=== PATIENT | female | born 1930 | race African-American/Black ===

== ENCOUNTER 2016-09-22 09:04 | Inpatient (IN) ==
[2016-09-22] MEDS ORDERED: SODIUM CHLORIDE 0.9% 500 ML IV STA (09:28)
[2016-09-22] MEDS ORDERED: PANTOPRAZOLE 40 MG VIAL IV STA (09:28)
--- NOTE | 2016-09-22 09:33 | Emergency Department Note ---
Arrival - Arrival Chief Complaint: GI Bleed/Rectal Stated Complaint: rectal bleed ED Nursing Triage Note: states got up this am to void but only had rectal bleeding Mode of Arrival: Wheelchair Limitations: No Limitations Source: Patient Time Seen by Provider: 09/22/16 09:28 - History of Present Illness HPI Narrative: This 85-year-old black female presents with 18 hours of intermittent painless rectal bleeding. The patient denies any recent abdominal pain, heartburn, belching, peptic ulcer disease, pancreatitis, diverticulitis, melena, nausea, or vomiting. The patient describes the last 4 bowel movements as being very bloody and containing both blood and mucus but no clots. She denies any prior episodes such as this. She likewise denies any chest pain or shortness of breath since onset of the symptoms. The patient has had no symptoms associated with this and in fact has felt well the last several months with a good checkup just yesterday with her primary care doctor, Dr. Vences. Currently she appears in no acute medical distress. Onset (ago): hour(s) (Patient presents 18 hours post onset of symptoms) Consistency: constant Severity: moderate Date of Last Menstrual Period: hyst Allergies/Adverse Reactions: Allergies Allergy/AdvReac Type Severity Reaction Status Date / Time No Known Allergies Allergy Unverified 09/22/16 09:12 Home Medications: Home Medications Medication Instructions Recorded Confirmed Type Aspirin [Ecotrin] 81 mg PO QOTHER DAY 09/22/16 09/22/16 History Atorvastatin [Lipitor] 40 mg PO DAILY 09/22/16 09/22/16 History Carvedilol [Coreg] 6.25 mg PO BID 09/22/16 09/22/16 History Diltiazem HCl [Diltiazem ER (24 120 mg PO BID 09/22/16 09/22/16 History hr)] Meloxicam 7.5 mg PO DAILY 09/22/16 09/22/16 History Metformin HCl 850 mg PO BID 09/22/16 09/22/16 History Potassium Chloride [Klor-Con M20] 20 meq PO DAILY 09/22/16 09/22/16 History glipiZIDE [Glipizide] 10 mg PO BID 09/22/16 09/22/16 History Review of System - Review of System 12 point system: reviewed and no additional remarkable complaints except as stated - Review of System Respiratory: Present: as per HPI Cardiovascular: Present: as per HPI Gastrointestinal: Present: as per HPI Medical,Surgical,& Family Hx - Medical History Cardio: History of: Hypertension Endocrine: History of: Diabetes Mellitus (NIDDM), Dyslipidemia - Social History Smoking Status: Never smoker Frequency of Alcohol Use: None Type of Drug Use: None Exam Physical Examination: GENERAL: Well developed, well nourished elderly black female in no acute distress. HEENT: Normocephalic. No trauma. Moist mucous membranes. EOMI. PERRLA. ENT NML NECK: Supple. No adenopathy. CARDIAC: Regular. No murmurs. Heart rate 89 CHEST: Clear to auscultation. No respiratory distress. O2 sat 90% ABDOMEN: Soft. Nontender. Active bowel sounds. EXTREMITIES: No trauma. Normal ROM. No pedal edema. SKIN: No diaphoresis. No rash. NEURO: Alert. Neuro intact. No focal deficits. Vital Signs: Vital Signs Temperature 97.9 F 09/22/16 09:07 Pulse Rate 95 H 09/22/16 10:28 Respiratory Rate 14 09/22/16 10:28 Blood Pressure 189/96 09/22/16 09:45 O2 Sat by Pulse Oximetry 98 09/22/16 10:28 Course - Reevaluation(s) Reevaluation #1: Discussed with patient the need to find a source of her bleeding thus necessitating hospitalization. - Consultations Consultation #1: Discussed with the hospitalist service who will admit for further evaluation treatment. Results - Labs CBC & BMP: 09/22/16 09:58 09/22/16 09:58 Labs: Stool Hemoccult positive. I also noted the low hematocrit and hyponatremic status with negative cardiac's. - Impressions EKG: Sinus rhythm at 78. Normal AL interval with normal QRS duration. Left ventricular hypertrophy with nonspecific ST changes. Old anterior VA versus poor R-wave progression anteriorly. No acute injury pattern noted. - Diagnostic Findings Procedure: Chest x-ray: image reviewed by me, report reviewed by me ( Cardiomegaly) Disposition Clinical Impression: Lower GI bleed Case discussed with: patient, patient's family Disposition: Still a Patient Condition: Guarded Time of Disposition: 11:08
[2016-09-22 10:13] LABS: Basophils % 0.8 % (0.0-0.8); Eosinophils # 0.1 10*3/uL (0.0-0.87); Hematocrit 34.9 VOL% (35.7-47.0); Hemoglobin 11.5 GM/DL (12.0-16.0); Immature Granulocytes % 0.3 %; Immature Granulocytes Absolute 0.01 #; Lymphocytes # 1.3 10*3/uL (1.4-4.0); Lymphocytes % 32.2 % (21.3-54.2); Mean Corpuscular Hemoglobin 31 PG (27-34); Mean Corpuscular Volume 95.1 FL (87-102); Monocytes # 0.4 10*3/uL (0.11-0.8); Monocytes % 9.3 % (1.7-12.7); Neutrophils # 2.2 10*3/uL (1.4-7.4); Neutrophils % 55.4 % (38.7-73.9); Platelet Count 203 T/CUMM (130-400); Red Blood Count 3.67 MC/CUMM (3.8-5.5); Red Cell Distribution Width 12.3 % (9.3-17.3)
--- NOTE | 2016-09-22 10:17 | XRay Report ---
XR chest 1V portable Indication: Shortness of breath. Chest one view: No comparison. Heart is minimally enlarged. Aorta is calcified and tortuous. Mediastinal contour is unremarkable. Calcified granulomata are present bilaterally, especially left hilar region. Coarsened interstitial markings of the lungs are nonspecific, but no focal infiltrate is shown. Degenerative changes of the shoulders noted. Impression: Cardiomegaly without CHF. Prior granulomatous disease. PROCEDURE INTERPRETED AT [facility] DEPARTMENT OF RADIOLOGY Final Report Signed by: Viraj Gallegos M.D.
--- NOTE | 2016-09-22 10:19 | EKG Report ---
Stationary ECG Study [facility] ER Test Date: 09/22/2016 10:17:53 AM Pat Name: WESTLEY REGALADO Department: Room: Gender: F Jordan Man: : 1930 Requested by: Paul Prescott Order Number: [id number] Reading MD: LUCHO ROONEY Intervals [place] Rate: 78 P: 35 AR: 184 QRS: -46 QRSD: 89 T: 87 QT: 399 QTc: 433 Interpretive Statements SINUS RHYTHM LEFT ANTERIOR FASCICULAR BLOCK MINIMAL VOLTAGE CRITERIA FOR LVH, CONSIDER NORMAL VARIANT ANTEROSEPTAL MYOCARDIAL INFARCTION, OF INDETERMINATE AGE Electronically Signed On 09-22-16 22:55:17 CDT by LUCHO ROONEY [id number]
[2016-09-22 10:25] LABS: PT Patient Result 10.5 SECS; Partial Thromboplastin Time 21.5 SECS (0-40)
[2016-09-22 10:37] LABS: Alanine Aminotransferase 18 U/L (13-56); Albumin 3.5 G/DL (3.4-5.0); Alkaline Phosphatase 73 U/L (45-117); Aspartate Amino Transferase 17 U/L (0-37); Blood Urea Nitrogen 18 MG/DL (7-18); Calcium 8.9 MG/DL (8.5-10.1); Glucose 154 MG/DL (74-106); Osmolality,Calculated 303.9 MOS/KG (273-304); Potassium 3.9 MMOL/L (3.5-5.1); Sodium 151 MMOL/L (136-145); Total Protein 6.3 G/DL (6.4-8.3); Troponin I Only < 0.015 NG/ML (0.00-0.045)
[2016-09-22] MEDS ORDERED: PANTOPRAZOLE 40 MG VIAL IV ONE (11:19)
--- NOTE | 2016-09-22 11:53 | Hospitalist History & Physical ---
<YusufPatrizia - Last Filed: 09/22/16 12:49> Assessment and Plan (1) Rectal bleed Status: Acute Assessment and plan: Consult GI. Monitor lab work. Continue to monitor patient status. Current Visit: Yes (2) Hypertension Status: Acute Assessment and plan: Restart patient's home meds. Current Visit: Yes (3) Dyslipidemia Status: Chronic Assessment and plan: Lipid panel in am. Current Visit: Yes History of Present Illness Chief complaint: rectal bleeding History of present illness: Ms. Mario is a 85-year-old black female patient who presents to the ER today with complaints of painless, intermittent rectal bleeding. Patient states that the bleeding started yesterday afternoon around 4 PM. Pt. She states that she felt like she had to urinate but once she got to the bathroom she realized that she was bleeding. Patient describes the blood as painlesss and dark red in color that it was "a lot" and estimated that it was almost "a quart." Pt. states that there were no clots present. Patient denies ever having an episode similar to this before. Pt. reports the rectal bleeding occuring 3 times yesterday and once this am in at home and once in ED (totalling 5 times). Pt denies any chest pain or shortness of breath but admits to being lightheaded. Patient also denies any abdominal pain, fever, chills, nausea, vomiting, or diarrhea. Pt. denies any heartburn, ulcers or any stomach issues in the past. Pt. denies any trauma to rectal area or any constipation or straining. Patient has a past medical history of hypertension, diabetes, and elevated cholesterol. Past surgical history includes right hip and left knee replacements as well as hysterectomy. Pt states that she is on a blood thinner but is unable to state the name and reason for taking. Pt. has bag of medication but does not have blood thinner with her. ([facility] was called and had no record of blood thinner on file). No apparent distress noted. Family at bedside. The pt will be admitted to the hospitalist service for evaluation and treatment. Home Medications Medication Instructions Recorded Confirmed Type Aspirin [Ecotrin] 81 mg PO QOTHER DAY 09/22/16 09/22/16 History Atorvastatin [Lipitor] 40 mg PO DAILY 09/22/16 09/22/16 History Carvedilol [Coreg] 6.25 mg PO BID 09/22/16 09/22/16 History Diltiazem HCl [Diltiazem ER (24 120 mg PO BID 09/22/16 09/22/16 History hr)] Meloxicam 7.5 mg PO DAILY 09/22/16 09/22/16 History Metformin HCl 850 mg PO BID 09/22/16 09/22/16 History Potassium Chloride [Klor-Con M20] 20 meq PO DAILY 09/22/16 09/22/16 History glipiZIDE [Glipizide] 10 mg PO BID 09/22/16 09/22/16 History Allergies Allergy/AdvReac Type Severity Reaction Status Date / Time No Known Allergies Allergy Unverified 09/22/16 09:12 Medical,Surgical,& Family Hx - Medical History Cardio: History of: Hypertension Endocrine: History of: Diabetes Mellitus (NIDDM), Dyslipidemia - Surgical History Reproductive Surgeries: Surgical HX of;: Hysterectomy Orthopedic Surgeries: Surgical HX of;: Total Hip Replacement (right), Total Knee Replacement (left) - Social History Smoking Status: Never smoker Frequency of Alcohol Use: None Type of Drug Use: None Marital Status: Lives With:: Alone - Constitutional Constitutional: Absent: chills, fever(s), stops breathing during sleep - EENT Eyes: Absent: loss of vision Nose, mouth and throat: Absent: dysphagia, headache(s) - Cardiovascular Cardiovascular: Present: lightheadedness. Absent: chest pain at rest, dyspnea - Respiratory Respiratory: Absent: cough - Gastrointestinal Gastrointestinal: Present: hematochezia. Absent: abdominal pain, cramping, nausea, vomiting - Genitourinary Genitourinary: Absent: dysuria - Neurological Neurological: Absent: confusion, frequent falls Exam - Constitutional Vitals: Period Temp Pulse Resp BP Sys/White Pulse Ox Last 24 Hr 97.9 F 77-95 14-21 156-189/96-129 96-98 General appearance: no acute distress - Head Head exam: Present: normal inspection, normocephalic - Eye Eye exam: Present: EOMI Pupils: Present: AILYN - Respiratory Respiratory exam: Present: clear to auscultation bilaterally. Absent: wheezes - GI/Abdominal GI/Abdominal exam: Present: normal bowel sounds, soft. Absent: tenderness - Extremities Exam Extremities exam: Present: normal capillary refill, full ROM. Absent: edema - Neurological Exam Neurological exam: Present: alert, oriented X3 - Psychiatric Psychiatric exam: Present: normal affect, normal mood - Skin Skin exam: Present: normal color, warm, dry Results - Labs CBC & BMP: 09/22/16 09:58 09/22/16 09:58 Lab Results: I have reviewed the past 24 hour labs <Ester Hart - Last Filed: 09/22/16 14:27> History of Present Illness History of present illness: Ms. Mario is a 85 year old female with a history of DM, HTN who presents with a history of rectal bleed. patient seen, examined by me.I agree with the above management. -IVF -type and screen blood serial cbc UA A1c level Hold oral hypoglycemics due to NPo for possible scopes PPI SSC insulin Hold ASA resume other home meds. GI consult Exam - Constitutional Vitals: Period Temp Pulse Resp BP Sys/White Pulse Ox Last 24 Hr 77-84 16-21 160-197/85-104 96-99 Results - Labs CBC & BMP: 09/22/16 09:58 09/22/16 09:58
[2016-09-22] MEDS ORDERED: BISACODYL 5 MG TABLET PO PRN (15:32)
[2016-09-22] MEDS ORDERED: DEXTROSE 50% 25 GM/50 ML VIAL IV PRN (15:32)
[2016-09-22] MEDS ORDERED: GLUCAGON 1 MG VIAL IM PRN (15:32)
[2016-09-22] MEDS ORDERED: DOCUSATE SODIUM 100 MG CAPSULE PO PRN (15:32)
[2016-09-22] MEDS: SODIUM CHLORIDE 0.45% 1,000 ML IV SCH (16:00)
[2016-09-22] MEDS: INSULIN LISPRO 100 UNIT/ML SUBCUT SCH ×2 (17:32→22:42)
[2016-09-22 21:04] LABS: Apearance,Urine CLEAR (Clear); Bacteria,Urine Occasional /HPF (Few); Bilirubin,Urine Negative (Negative); Blood, Urine Large mg/dL (Negative); Glucose,Urine (UA) 50 mg/dL (Negative); Hyaline Casts,Urine 1 /LPF (0-3); Ketones,Urine Negative (Negative); Nitrite,Urine Negative (Negative); Protein,Urine Negative; RBC,Urine 1 /HPF (0-4); Squamous Epithelial Cell,Urine Occasional /HPF (0-10); Urine Color Yellow (Yellow); Urine Specific Gravity 1.006 (1.001-1.035); Urine Urobilinogen < 2.0 EU/DL (0.2-1.0); WBC,Urine 4 /HPF (0-6)
[2016-09-22] MEDS: DILTIAZEM CD 120 MG CAPSULE PO SCH (22:41)
[2016-09-22] MEDS: CARVEDILOL 6.25 MG TABLET PO SCH (22:42)
[2016-09-23] MEDS: SODIUM CHLORIDE 0.45% 1,000 ML IV SCH (01:48)
[2016-09-23 06:05] LABS: PT Patient Result 10.8 SECS
[2016-09-23 06:18] LABS: Basophils % 0.6 % (0.0-0.8); Eosinophils # 0.1 10*3/uL (0.0-0.87); Eosinophils % 2.2 % (0.00-10.9); Hematocrit 25.8 VOL% (35.7-47.0); Immature Granulocytes % 0.3 %; Immature Granulocytes Absolute 0.01 #; Lymphocytes # 1.5 10*3/uL (1.4-4.0); Lymphocytes % 42.4 % (21.3-54.2); Mean Corpuscular HGB Conc 32.9 GM/DL (32-36); Mean Corpuscular Hemoglobin 32 PG (27-34); Mean Corpuscular Volume 95.6 FL (87-102); Mean Platelet Volume 11.4 FL (9.6-12.0); Monocytes # 0.4 10*3/uL (0.11-0.8); Monocytes % 11.4 % (1.7-12.7); Neutrophils # 1.6 10*3/uL (1.4-7.4); Neutrophils % 43.1 % (38.7-73.9); Platelet Count 172 T/CUMM (130-400); Red Cell Distribution Width 12.5 % (9.3-17.3); White Blood Count 3.6 T/CUMM (4-12)
[2016-09-23 06:20] LABS: Hemoglobin 8.5 GM/DL (12.0-16.0)
[2016-09-23 06:32] LABS: Albumin 2.8 G/DL (3.4-5.0); Bilirubin,Total 0.7 MG/DL (0.2-1.0); Osmolality,Calculated 301.7 MOS/KG (273-304); Potassium 3.3 MMOL/L (3.5-5.1); Total Protein 4.8 G/DL (6.4-8.3)
[2016-09-23 06:39] LABS: Risk Ratio 2.72; VLDL CHOLESTEROL 19.6 MG/DL
[2016-09-23 06:41] LABS: Free T4 (Free Thyroxine) 1.22 NG/DL (0.76-1.46); Thyroid Stimulating Hormone 1.83 uIU/ml (0.358-3.74)
--- NOTE | 2016-09-23 07:25 | Gastrointestinal Consult Note ---
Assessment and Plan (1) Lower GI bleeding Status: Acute Assessment and plan: This patient has dizziness in approximately 5-6 episodes of bright red blood/ maroon stool per rectum starting yesterday at 4 PM. Seems characteristic of a diverticular bleed. The patient states that over 10 years ago she did have a colonoscopy done by Dr. Hoffman but does not recall exactly what the results were. It is felt this also might be a colon cancer versus AVM versus ischemic colitis versus infectious colitis as other possible etiologies of the bleeding. This was painless making me believe that there was a diverticular bleed in particular. She has lost a significant amount of blood and does need transfusion today. Current Visit: Yes (2) Acute blood loss anemia Status: Acute Assessment and plan: We will continue to follow patient's hematocrit over time however we will transfuse 2 units packed red blood cells given the patient's ongoing dizziness whenever she tries to sit up in bed, and given her advanced age. We need a cushion in case she bleeds again. Currently her hematocrit is down to the 25.8 % range, parameters written. We will plan on prepping the patient this afternoon and doing colonoscopy tomorrow morning around 7-9 AM in the morning. Risks and benefits were reviewed with the patient and include but are not limited to: Bleeding, infection, perforation, cardiac and pulmonary compromise. Further recommendations post colonoscopy. I have stopped the patient's aspirin and Mobic, if we do not find anything on lower endoscopy evaluation and see further bleeding coming from the TI we will certainly order a upper endoscopy to follow Wednesday otherwise the patient should be able to be discharged potentially. Current Visit: Yes History of Present Illness Chief complaint: Hematocrit dropped to 34.9-->25.8%, bright red blood per rectum History of present illness: Ms. Mario is a 85 year old female Patient states that the bleeding started yesterday afternoon around 4 PM. Pt. painless rectal bleeding after attempting to urinate--unclear quantity. Total 5 episodes described including 1 in the emergency room which was witnessed and appeared to be dark red. Pt denies any chest pain or shortness of breath but admits to being lightheaded. No constipation per patient. Patient's hematocrit is subsequently dropped from 34.9-->25.8. Medication list includes meloxicam and aspirin as potential bleeding sources. Given the bright red blood/maroon stools seen by the patient we will start with the colon first. On physical exam this blood in the rectum is noted to be brighter red than previously described and grossly guaiac positive. She states that she had previously had a colonoscopy done by Dr. Hoffman over 10 years ago--this may be another Jose Roberto as there is no entry in the computer for this. This patient unfortunately lost her of 70 years last December and is still mourning his loss. Nothing like this is ever happened previously, and no point was the stool noted to be black. Due to her ongoing dizziness we will be transfusing the patient with 2 units of packed red blood cells each followed by 20 mg of Lasix. Home Medications Medication Instructions Recorded Confirmed Type Aspirin [Ecotrin] 81 mg PO QOTHER DAY 09/22/16 09/22/16 History Atorvastatin [Lipitor] 40 mg PO DAILY 09/22/16 09/22/16 History Carvedilol [Coreg] 6.25 mg PO BID 09/22/16 09/22/16 History Diltiazem HCl [Diltiazem ER (24 120 mg PO BID 09/22/16 09/22/16 History hr)] Meloxicam 7.5 mg PO DAILY 09/22/16 09/22/16 History Metformin HCl 850 mg PO BID 09/22/16 09/22/16 History Potassium Chloride [Klor-Con M20] 20 meq PO DAILY 09/22/16 09/22/16 History glipiZIDE [Glipizide] 10 mg PO BID 09/22/16 09/22/16 History Allergies Allergy/AdvReac Type Severity Reaction Status Date / Time No Known Allergies Allergy Unverified 09/22/16 09:12 Medical,Surgical,& Family Hx - Medical History Cardio: History of: Hypertension Psychological: No history of: Anxiety Disorders, ADHD, Behavior Problems, Bipolar Disorder, Depression, Previous Suicide Attempt, Psychiatric/Substance Abuse Tx, Schizophrenia, Violent Behavior, Psychiatric Problems Endocrine: History of: Diabetes Mellitus (NIDDM), Dyslipidemia Musculoskeletal: History of: Musculoskeletal Problems - Surgical History Thoracic Surgeries: Patient denies;: Organ Transplant Neurologic Surgeries: Patient denies: Neurologic Surgery Abdominal Surgeries: Surgical HX of: Abdominal Surgery Reproductive Surgeries: Surgical HX of;: Hysterectomy Orthopedic Surgeries: Surgical HX of;: Total Hip Replacement (right), Total Knee Replacement (left) - Family History Family History: Reports;: Family Cancer (mother), Family Stroke (2 brothers cva) , Additional Family History (father emphyasema) - Social History Smoking Status: Never smoker Frequency of Alcohol Use: None Type of Drug Use: None Review of systems: Constitutional: Denies fever, chills, nausea, and vomiting Eyes: Denies dry eyes, and scleral icterus HENT: Denies headaches Cardiovascular: Denies acute chest pain and claudication Respiratory: Denies shortness of breath, wheezing, and difficulty breathing, denies cough Gastrointestinal: As noted in the HPI Genitourinary: Denies dysuria and hematuria Neurologic: Denies vision loss, and loss of sensation Musculoskeletal: She does admit to joint swelling, joint stiffness, and muscular weakness, and does have some dizziness Psychiatric: Denies depression and tj symptoms Heme-Lymph: Denies easy bruising, lymph node enlargement or tenderness, night sweats, excessive bleeding Allergies-immunologic: Denies pruritus and rhinorrhea Exam - Constitutional Vitals: Period Temp Pulse Resp BP Sys/White Pulse Ox Last 24 Hr 97.1 F-97.9 F 69-106 13-23 120-197/66-122 95-100 Exam: Constitutional: Well-developed, well-nourished, alert obese black female, in no acute distress Head and face: Head: Normocephalic atraumatic Eyes: Conjunctiva without injection, no gross scleral icterus, pupils equal and round bilaterally Ears: Intact to conversation in both ears Nose: External appearance is normal, nares patent Mouth: Oral mucous membranes moist without erythema dentition noted to be without erosion Neck: Normal appearance, no masses or tenderness, trachea midline Thyroid: Gland midline and appropriate size for age Respiratory: Normal respiratory effort, clear to auscultation without wheezes, rhonchi or rales Cardiovascular: Regular rate and rhythm, normal S1, S2, the exam is without rubs, murmurs or gallops. Gastrointestinal: Nontender to palpation, normal active bowel sounds, tone normal without rigidity or guarding, no masses present, no hepatomegaly, no spleen tip felt. Rectal exam shows mild anal stricturing, patient does have small internal hemorrhoids stool is red and grossly guaiac positive. Lymphatic: Neck without adenopathy, axilla without lymphadenopathy present Musculoskeletal: Right and left lower extremities without evidence of edema Skin and subcutaneous tissue: No rashes or ulcerations noted, normal skin turgor, digits and nails without clubbing/cyanosis/deformities. Neurologic: The patient is grossly oriented to person place and time, cranial nerves show tongue movements are normal with normal tongue extrusion midline, light touch sensation is intact. Psychiatric: No hallucinations or delusions are present, does not appear depressed Results - Labs CBC & BMP: 09/23/16 05:11 09/23/16 05:11 Quality Measures - VTE Contraindication to Pharmacological VTE Prophylaxis: Active Bleeding
[2016-09-23] MEDS ORDERED: SODIUM CHLORIDE 0.9% 250 ML IV PRN (07:30)
[2016-09-23] MEDS ORDERED: FUROSEMIDE 20 MG/2 ML VIAL IV PRN (07:30)
--- NOTE | 2016-09-23 08:28 | Physician Query Form ---
CLICK EDIT DOCUMENT TO SELECT QUERY ANSWER --> OK --> SIGN Carmen Guerrero RN, CCDS Certified Clinical Mica Paster W) [phone] (f) [phone] [email or web address] PROVIDERS: Make your selection(s) from the choices in EACH section by typing an "x" and enter comments in the comment section. Please use your independent medical judgment in providing your response. This request does not imply that any particular answer is desired or expected. CLINICAL INDICATORS: (Providers should not edit this section) The medical record indicates that the patient was admitted with lower GI bleeding, HH of 11.5/34.9 that has dropped to 8.5/25.8 and the patient has a order for blood. Based on the above, could you clarify which of the following conditions you are evaluating, treating, and/or monitoring? ( ) Blood loss anemia ( ) acute ( ) chronic (XX) acute on chronic ( ) Acute blood loss anemia on baseline chronic anemia ( ) Acute blood loss anemia as a complication of a procedure ( ) Iron deficiency anemia not associated with blood loss ( ) Dilutional anemia due to IV fluids ( ) Anemia due to chemotherapy ( ) Anemia due to neoplastic disease ( ) Anemia due to chronic kidney disease ( ) Pernicious anemia ( ) Aplastic anemia ( ) Hemolytic anemia ( ) immune ( ) non-immune - please specify cause: ( ) Anemia due to other condition, please specify: ( ) Clinically unable to determine COMMENTS: Use of terms such as suspected, likely, or probable (associated with a specific diagnosis that is being evaluated, monitored, or treated as if it exists) are acceptable and can be restated in the discharge summary if not ruled out. MTDD
[2016-09-23] MEDS: INSULIN LISPRO 100 UNIT/ML SUBCUT SCH ×4 (08:49→21:39)
[2016-09-23] MEDS: ATORVASTATIN 40 MG TABLET PO SCH (08:50)
[2016-09-23] MEDS: BISACODYL 5 MG TABLET PO SCH ×3 (08:50→21:38)
[2016-09-23] MEDS: PANTOPRAZOLE 40 MG VIAL IV SCH (08:50)
[2016-09-23] MEDS: CARVEDILOL 6.25 MG TABLET PO SCH ×2 (08:51→21:39)
[2016-09-23] MEDS: DILTIAZEM CD 120 MG CAPSULE PO SCH ×2 (08:51→21:40)
[2016-09-23] MEDS ORDERED: MELOXICAM 7.5 MG TABLET PO SCH (09:00)
[2016-09-23] MEDS: SODIUM CHLORIDE 23.4% CONC INJ 38.5 MEQ in STERILE WATER INJ 1,000 ML IV SCH (12:53)
[2016-09-23] MEDS: POTASSIUM CHLORIDE 20 MEQ TABLET PO PRN ×3 (12:59→17:19)
[2016-09-23] MEDS ORDERED: DEXTROSE 5% 500 ML IV SCH (15:00)
[2016-09-23] MEDS ORDERED: POLYETHYLENE GLYCOL POWDER 255 GM BOTTLE PO ONE (16:00)
--- NOTE | 2016-09-23 16:29 | Hospitalist Progress Note ---
Assessment and Plan (1) Rectal bleed Status: Acute Assessment and plan: her last bloody stool was around 9am today. Continue with transfusion. For a colonoscopy in am. Current Visit: Yes (2) Hypertension Status: Acute Assessment and plan: uncontrolled. Will add lisinopril 5mg daily, follow response. Current Visit: Yes (3) Dyslipidemia Status: Chronic Assessment and plan: continue with statins. Lipids noted. Current Visit: Yes (4) Diabetes Status: Acute Assessment and plan: continue SSC and accuchecks, [id number] Current Visit: Yes (5) Acute blood loss anemia Status: Acute Assessment and plan: due to a GI bleed. Follow colonoscopy in am. continue with PPIs, hold ASA, she is currently receiving two units of packed cells. CBC in am Current Visit: Yes Hospitalist: Subjective Interval history: Patient seen. her last bloody stool was around 9am today.She is currently being transfused with packed cells.She will be going for a colonoscopy in am. Exam - Constitutional Vitals: Period Temp Pulse Resp BP Sys/White Pulse Ox Last 24 Hr 97.1 F-98.2 F 55-106 17-20 119-195/66-122 95-98 General appearance: no acute distress - Head Head exam: Present: normal inspection - Respiratory Respiratory exam: Present: clear to auscultation bilaterally - Cardiovascular Cardiovascular exam: Present: regular rate and rhythm - GI/Abdominal GI/Abdominal exam: Present: normal bowel sounds - Extremities Exam Extremities exam: Present: normal inspection - Neurological Exam Neurological exam: Present: alert Results - Labs CBC & BMP: 09/23/16 05:11 09/23/16 05:11 Lab Results: I have reviewed the past 24 hour labs Quality Measures - VTE Contraindication to Pharmacological VTE Prophylaxis: Active Bleeding
[2016-09-23] MEDS: LISINOPRIL 5 MG TABLET PO SCH (17:22)
[2016-09-23] MEDS ORDERED: MAGNESIUM CITRATE 300 ML BOTTLE PO ONE (21:00)
[2016-09-24] MEDS: BISACODYL 5 MG TABLET PO SCH (00:52)
[2016-09-24] MEDS: SODIUM CHLORIDE 23.4% CONC INJ 38.5 MEQ in STERILE WATER INJ 1,000 ML IV SCH ×2 (00:53→16:23)
--- NOTE | 2016-09-24 06:33 | Gastrointestinal Progress Note ---
Assessment and Plan (1) Lower GI bleeding Status: Acute Assessment and plan: This patient has dizziness in approximately 5-6 episodes of bright red blood/ maroon stool per rectum starting yesterday at 4 PM. Seems characteristic of a diverticular bleed. The patient states that over 10 years ago she did have a colonoscopy done by Dr. Hoffman but does not recall exactly what the results were. It is felt this also might be a colon cancer versus AVM versus ischemic colitis versus infectious colitis as other possible etiologies of the bleeding. This was painless making me believe that there was a diverticular bleed in particular. She has lost a significant amount of blood and does need transfusion today. 09/24/16--The patient did not have any further leading with the GI prep. Findings of colonoscopy were as follows: Moderately severe left-sided diverticulosis, thought to be the source of this patient's bleeding, moderate size internal hemorrhoids noted on retroflex, single rectal polyp noted as well removed by hot biopsy. She is not bleeding at this point and there is no blood refluxing from the terminal ileum. Her hematocrit is increased to 36% and she can be discharged from the hospital at this time. We need to advise the patient that her likelihood of having a rebleed in the next 1 year is about 25% . The bleeding was thought to be coming from diverticuli noted in the sigmoid colon. Current Visit: Yes (2) Acute blood loss anemia Status: Acute Assessment and plan: We will continue to follow patient's hematocrit over time however we will transfuse 2 units packed red blood cells given the patient's ongoing dizziness whenever she tries to sit up in bed, and given her advanced age. We need a cushion in case she bleeds again. Currently her hematocrit is down to the 25.8 % range, parameters written. We will plan on prepping the patient this afternoon and doing colonoscopy tomorrow morning around 7-9 AM in the morning. Risks and benefits were reviewed with the patient and include but are not limited to: Bleeding, infection, perforation, cardiac and pulmonary compromise. Further recommendations post colonoscopy. I have stopped the patient's aspirin and Mobic, if we do not find anything on lower endoscopy evaluation and see further bleeding coming from the TI we will certainly order a upper endoscopy to follow Wednesday otherwise the patient should be able to be discharged potentially. 09/24/16--patient's hematocrit is stable now at 36% she has had no further bleeding with the prep over the evening time and can be discharged home at this time in my opinion. I will contact the patient when the polyp results come back from her rectum. She has a 25% chance of rebleed in the next 1 year. If rebleeding occurs acutely she should be taken to tagged red blood cell scan to define the exact source of the bleeding site. Avoid NSAIDs for the next 2 weeks. Patient is able to eat solid food at this time. Current Visit: Yes Gastroenterology - PN: Subj Interval history: No further rectal bleeding, stools are clean and clear. No abdominal pain this morning. Preliminary from urine cultures show gram-negative rods. The patient did receive 2 units packed red blood cells. No hematocrit yet available from this morning. No further bleeding last night with the prep. Exam (Progress Note) - Constitutional Vitals: Period Temp Pulse Resp BP Sys/White Pulse Ox Last 24 Hr 97.3 F-98.2 F 55-83 16-18 119-195/62-99 92-98 General appearance: no acute distress - Head Head exam: Present: normocephalic - Eye Eye exam: Present: EOMI Pupils: Present: AILYN - Respiratory Respiratory exam: Present: clear to auscultation bilaterally. Absent: rhonchi, stridor, wheezes - Cardiovascular Cardiovascular exam: Present: regular rate and rhythm - GI/Abdominal GI/Abdominal exam: Present: normal bowel sounds, distended, soft. Absent: ascites, guarding, tenderness, rebound - Extremities Exam Extremities exam: Present: normal inspection - Back Exam Back exam: Present: normal inspection - Neurological Exam Neurological exam: Present: alert, oriented X3 - Psychiatric Psychiatric exam: Present: normal affect, normal mood - Skin Skin exam: Present: warm Results - Labs CBC & BMP: 09/24/16 06:46 09/24/16 06:46
[2016-09-24 07:02] LABS: Basophils % 0.7 % (0.0-0.8); Mean Corpuscular HGB Conc 33.8 GM/DL (32-36)
[2016-09-24 07:12] LABS: PT Patient Result 10.5 SECS
[2016-09-24 07:14] LABS: Eosinophils # 0.1 10*3/uL (0.0-0.87); Eosinophils % 2.5 % (0.00-10.9); Hematocrit 36.7 VOL% (35.7-47.0); Immature Granulocytes % 0.4 %; Immature Granulocytes Absolute 0.02 #; Lymphocytes # 1.6 10*3/uL (1.4-4.0); Lymphocytes % 29.1 % (21.3-54.2); Mean Corpuscular Hemoglobin 31 PG (27-34); Mean Corpuscular Volume 92.4 FL (87-102); Mean Platelet Volume 11.1 FL (9.6-12.0); Monocytes # 0.4 10*3/uL (0.11-0.8); Monocytes % 7.8 % (1.7-12.7); Neutrophils # 3.3 10*3/uL (1.4-7.4); Neutrophils % 59.5 % (38.7-73.9); Platelet Count 202 T/CUMM (130-400); Red Cell Distribution Width 12.9 % (9.3-17.3)
[2016-09-24 07:19] LABS: Hemoglobin 12.4 GM/DL (12.0-16.0); Red Blood Count 3.97 MC/CUMM (3.8-5.5); White Blood Count 5.6 T/CUMM (4-12)
[2016-09-24 07:35] LABS: Osmolality,Calculated 296.1 MOS/KG (273-304); Potassium 3.4 MMOL/L (3.5-5.1)
[2016-09-24] MEDS ORDERED: LIDOCAINE 2% 5 ML VIAL ONE (08:51)
[2016-09-24] MEDS ORDERED: PROPOFOL 200 MG/20 ML VIAL IV ONE (08:51)
--- NOTE | 2016-09-24 09:17 | Operative Note ---
Date of procedure: 09/24/16 Pre-op diagnosis: Rectal bleeding, hematocrit to 25% now up to 36 post transfusion Post-op diagnosis: other (Moderately severe left-sided diverticulosis, thought to be the source of this patient's bleeding, moderate size internal hemorrhoids noted on retroflex, single rectal polyp noted as well removed by hot biopsy) Procedure: PROCEDURE: Colonoscopy with hot biopsy polypectomy REFERRING PHYSICIAN: Ester Hart MD INDICATIONS: This is a patient who has bright red blood per rectum, likely diverticular bleed with decrease in hematocrit to 25% now up to 36% posttransfusion. The prior H&P was reviewed and interrim changes are as noted: No change from GI consultation yesterday ENDOSCOPIST: Andrew Anthony MD ENDOSCOPE: [employer] Video 100 System colonoscope COLON PREPARATION: 238 gm of PEG containing laxative and 1.9 liters of gatoraid/sports drink and dulcolax 15 mg q8 hours x 3 ASA CLASS: 3 EXAM: CV: regular rate and rhythm Respiratory: Clear without wheezes Abdominal: active bowel sounds Rectal: Good tone, no fissures or fistulas MEDICATION: Per nursing anesthesia protocol, see their notes PROCEDURE: After discussion of the potential risks and benefits of colonoscopy, the informed consent was obtained, from patient or health care surrogate. The patient was then placed in the left lateral decubitus position where sedation was achieved as noted above. Rectal examination was followed by insertion of the colonoscope. The colonoscope was passed under direct visualization to the cecum. Advancement was facilitated by insertion/withdrawl techniques, abdominal pressure and patient positioning. Once the cecal pole was reached, slow withdrawal was performed with the findings as noted below. The patient tolerated the procedure well and without compliExcellentcation. QUALITY OF PREP: Excellent WITHDRAWL TIME: 7 minutes 33 seconds BIOPSIES: Rectal hyperplastic-appearing polyp PHOTOGRAPHS: Obtained FINDINGS: The musoca appeared normal in the following regions: sigmoid colon, descending colon, splenic flexure, transverse colon, hepatic flexure, ascending colon and cecum. Position within the cecum was confirmed by ileocecal valve, appendiceal oriface, and the convergence of folds (crows foot). No colitis, polyp, mass or AVM was noted throughout the colon. Moderate to severe diverticulosis on the left side of the colon particularly in the sigmoid noted, this was thought to be the area of bleeding. There was no josué blood seen through the colon. Intubation of the TI was achieved x 2 cm with normal appearence--no blood refluxing from this area. IMPRESSION: Moderately severe left-sided diverticulosis, thought to be the source of this patient's bleeding, moderate size internal hemorrhoids noted on retroflex, single rectal polyp noted as well removed by hot biopsy RECOMMENDATIONS: No further rectal bleeding, this patient can be discharged today, since her hematocrit is back up to 36% post transfusion. This was thought to be a diverticular bleed and has stopped at this point. High fiber diet Repeat colonosocopy will be in 5-10 years depending on pathology of the polyp removed, we will contact patient when this information becomes available. Citrucel 1 tablespoon in 12 oz juice BID: 1 bottle: :11 Follow up by phone for biopsy results in 1-2 weeks by phone Andrew Anthony MD COPY TO: Ester Hart MD Anesthesia: MAC Surgeon / Physician: Andrew Anthony Estimated blood loss: minimal Specimens: other (Rectal polyp) Condition: stable Disposition: post procedure unit ([facility] Suite) Results - Labs CBC & BMP: 09/24/16 06:46 09/24/16 06:46 Discharge Plan - Discharge Medications No Action Meloxicam 7.5 mg PO DAILY Diltiazem HCl [Diltiazem ER (24 hr)] 120 mg PO BID Carvedilol [Coreg] 6.25 mg PO BID glipiZIDE [Glipizide] 10 mg PO BID Metformin HCl 850 mg PO BID Atorvastatin [Lipitor] 40 mg PO DAILY Potassium Chloride [Klor-Con M20] 20 meq PO DAILY Aspirin [Ecotrin] 81 mg PO QOTHER DAY - Follow Up or Referral - Forms/Instructions
[2016-09-24] MEDS: INSULIN LISPRO 100 UNIT/ML SUBCUT SCH ×4 (09:35→21:31)
[2016-09-24] MEDS: DILTIAZEM CD 120 MG CAPSULE PO SCH ×3 (09:35→21:31)
[2016-09-24] MEDS: LISINOPRIL 5 MG TABLET PO SCH ×2 (09:36→12:49)
[2016-09-24] MEDS: CARVEDILOL 6.25 MG TABLET PO SCH ×3 (09:36→21:31)
[2016-09-24] MEDS: PANTOPRAZOLE 40 MG VIAL IV SCH (09:36)
[2016-09-24] MEDS: ATORVASTATIN 40 MG TABLET PO SCH ×2 (09:36→12:49)
--- NOTE | 2016-09-24 09:57 | Anesthesia ---
Anesthesia Post OP - Post Ansesthetic Evaluation Patient seen in post op: Yes Resp: within normal limits CV: within normal limits Mental: within normal limits Temp: within normal limits Pelk-Dg-Kaszomnts: within normal limits Nausea and Vomiting: within normal limits Pain: within normal limits
[2016-09-24] MEDS: POTASSIUM CHLORIDE 20 MEQ TABLET PO PRN ×2 (12:52→16:22)
--- NOTE | 2016-09-24 15:15 | Hospitalist Progress Note ---
Assessment and Plan (1) Rectal bleed Status: Acute Assessment and plan: s/p transfusion with 2units of packed cells s/p colonoscopy today which showed moderately severe left-sided diverticulosis, thought to be the source of this patient's bleeding, moderate size internal hemorrhoids noted on retroflex, single rectal polyp noted as well removed by hot biopsy plan observe till am and dc if no complications Current Visit: Yes (2) Hypertension Status: Acute Assessment and plan: uncontrolled. increase lisinopril to 10mg daily, follow response. Current Visit: Yes (3) Dyslipidemia Status: Chronic Assessment and plan: continue with statins. Lipids noted. Current Visit: Yes (4) Diabetes Status: Acute Assessment and plan: continue SSC and accuchecks, [id number] Current Visit: Yes (5) Acute blood loss anemia Status: Acute Assessment and plan: due to a GI bleed. S/p transfusion. See above for treatment Current Visit: Yes Hospitalist: Subjective Interval history: Patient seen. She had a colonoscopy which showed Moderately severe left-sided diverticulosis, thought to be the source of this patient's bleeding, moderate size internal hemorrhoids noted on retroflex, single rectal polyp noted as well removed by hot biopsy. No episode of GI bleed. Exam - Constitutional Vitals: Period Temp Pulse Resp BP Sys/White Pulse Ox Last 24 Hr 96.0 F-98.1 F 58-79 12-18 126-205/62-097 92-99 General appearance: no acute distress - Head Head exam: Present: normal inspection - Respiratory Respiratory exam: Present: clear to auscultation bilaterally - Cardiovascular Cardiovascular exam: Present: regular rate and rhythm - GI/Abdominal GI/Abdominal exam: Present: normal bowel sounds - Extremities Exam Extremities exam: Present: normal inspection - Back Exam Back exam: Present: normal inspection Results - Labs CBC & BMP: 09/24/16 06:46 09/24/16 06:46 Lab Results: I have reviewed the past 24 hour labs Quality Measures - VTE Contraindication to Pharmacological VTE Prophylaxis: Active Bleeding
[2016-09-24] MEDS ORDERED: LISINOPRIL 10 MG TABLET PO SCH (15:17)
[2016-09-25] MEDS: SODIUM CHLORIDE 23.4% CONC INJ 38.5 MEQ in STERILE WATER INJ 1,000 ML IV SCH (05:24)
[2016-09-25 05:27] LABS: PT Patient Result 10.6 SECS
[2016-09-25 07:47] VITALS: BP 148/72
--- NOTE | 2016-09-25 07:58 | Discharge Summary ---
Hospital Course - Hospital Course Hospital Course: Ms. Mario is a 85 yr old black female with a hx of htn, dm, and hyperlipidemia that presented to the ED on 09/23 with complaints on rectal bleeding x 1 day. The pt. had 4 episodes of dark maroon blood per rectum before coming to the ED for evaluation. She was admitted to the hospitalist service. The patient's h&h decreased from 11.5/34.9 to 8.5/25.8 and received 2 units of PRBCs for a low h& h. GI was consulted to evaluate her and she had a colonoscopy on 09/24. Results revealed 'moderately severe left-sided diverticulosis, thought to be the source of this patient's bleeding, moderate size internal hemorrhoids noted on retroflex, single rectal polyp noted as well removed by hot biopsy'. She will follow up by phone for biopsy results in 1-2 weeks by phone per GI. Pt is stable since colonoscopy. Labs wnl (h&h 12.4/36.7) and vs stable. Pt is to be discharged home today. Diagnosis - Discharge Diagnosis (1) Rectal bleed Status: Acute (2) Hypertension Status: Acute (3) Dyslipidemia Status: Chronic Discharge Plan - Discharge Medications No Action Meloxicam 7.5 mg PO DAILY Diltiazem HCl [Diltiazem ER (24 hr)] 120 mg PO BID Carvedilol [Coreg] 6.25 mg PO BID glipiZIDE [Glipizide] 10 mg PO BID Metformin HCl 850 mg PO BID Atorvastatin [Lipitor] 40 mg PO DAILY Potassium Chloride [Klor-Con M20] 20 meq PO DAILY Aspirin [Ecotrin] 81 mg PO QOTHER DAY - Follow Up or Referral - Forms/Instructions Exam - Constitutional Vitals: Period Temp Pulse Resp BP Sys/White Pulse Ox Last 24 Hr 97.4 F-99.4 F 54-82 12-18 113-205/57-097 92-100 Discharge Results Labs on day of discharge: Labs from last 24 hours 09/25/16 09/24/16 09/24/16 05:08 20:12 15:45 INR 1.0 PT Patient/Control Mix 10.6 POC Glucose 228 H 129 H 09/24/16 12:43 INR PT Patient/Control Mix POC Glucose 229 H DS: Provider Date of admission: 09/22/16 11:06 Primary care physician: . No PCP Attending physician on admission: Ester Hart MD Consults: 09/22/16 15:32 Consult to Physician [CONS] Routine Comment: Dr. Anthony aware Consulting Provider: Andrew Anthony Consult to Specialist Group: Gastroenterology 09/22/16 15:39 Consult to Pharmacy [CONS] Routine Reason for Pharmacy Consult: Adjust Meds Renal Funct Discharging clinician: Patrizia Yusuf NP
[2016-09-25] MEDS: INSULIN LISPRO 100 UNIT/ML SUBCUT SCH ×2 (09:11→12:34)
[2016-09-25] MEDS: ATORVASTATIN 40 MG TABLET PO SCH (09:12)
[2016-09-25] MEDS: DILTIAZEM CD 120 MG CAPSULE PO SCH (09:13)
[2016-09-25] MEDS: CARVEDILOL 6.25 MG TABLET PO SCH (09:13)
[2016-09-25] MEDS: PANTOPRAZOLE 40 MG VIAL IV SCH ×2 (09:13→10:42)
--- NOTE | 2016-09-29 13:22 | Pathology Report from [facility] ---
ACCESSION # : [id number] PATIENT NAME : Winnie Mario ORDERING DR : Andrew Anthony MD CLINICAL HX: GI bleed POST-OP DX: Same SPECIMEN INFO: Colon polyp rectum GROSS DESCRIPTION: The specimen is received in formalin labeled with the patient 's name Winnie Mario consists of tiny fragments of white mccray tissue measuring 0.1 x 0.1 cm. Filtered and submitted in one cassette. DIAGNOSIS FOR WNINIE MARIO: COLON POLYP RECTUM: Minute superficial colonic mucosal fragments; insufficient for definitive evaluation. SERVICE DATE: 09/24/2016 REPORT DATE: 09/25/2016 PATHOLOGIST: Mariam Shaw M.D. [facility]
== END 2016-09-25 12:15 | disposition home or self-care (01) | DRG 378 ==
LOC: N.ED 09:04 → N.EDINP 11:06 → N.5E 14:21
PROVIDERS: ADMIT Internal Medicine; ATTEND Internal Medicine